=== PATIENT | female | born 1945 | race Caucasian/White ===

== ENCOUNTER → 2018-02-12 | Outpatient (CLI) | payer MEDICARE ==
[~2018-02-12] MED LIST: ACY200 PO; ASPI-715 PO; AZIT-9 PO; CIPR-214 PO; GEMF600T91 PO; LISI20TA29 PO; LOR5/325 PO; METF-410 PO; NONE NOW; OMEG-41 PO; OMEP-125 PO; OMEP-218 PO; ONDA4TAB PO; PER PO; POTA99TA6 PO
--- NOTE | 2018-02-12 12:25 | RADIOLOGY IMAGING REPORT ---
[facility] PATIENT NAME: Kim Ramos : 1945 MR: [id number] V: [id number] EXAM DATE: ORDERING PHYSICIAN: CISCO CLAYTON TECHNOLOGIST: Location: [facility] Patient: Kim Ramos : 1945 Visit/Account:[id number] Date of Sevice: 02/12/2018 Exam type: CHEST PA AND LAT History: Yearly checkup, history of left nephrectomy Comparison: 10/25/2017. Findings: Lungs are hyperinflated with chronic interstitial changes. No focal infiltrate, pleural effusion or p neumothorax. No pulmonary nodules seen. Biapical pleural scarring is once again noted. Heart size is normal. Thoracic aorta is ectatic. The osseous structures demonstrate degenerative changes. IMPRESSION: 1. No acute cardiopulmonary disease. 2. Pulmonary hyperinflation with chronic initial changes. 3. No definitive metastatic disease to the chest. Report Dictated By: Arvind Serrato MD at 02/12/2018 12:18 PM Report E-Signed By: Arvind Serrato MD at 02/12/2018 12:21 PM WSN:[id number]
--- NOTE | 2018-02-12 14:11 | RADIOLOGY IMAGING REPORT ---
FACILITY: [facility] PATIENT NAME: Kim Ramos : 1945 MR: [id number] V: [id number] EXAM DATE: ORDERING PHYSICIAN: CISCO CLAYTON TECHNOLOGIST: Location: [facility] [place] Patient: Kim Ramos : 1945 Visit/Account:[id number] Date of Sevice: 02/12/2018 CT abdomen and pelvis without contrast Indication: Renal cell carcinoma Comparison: CT examination from November 28, 2016 Technique: Axial CT images are obtained through the a bdomen and pelvis. Reformatted coronal and sagittal images were reviewed. IV contrast was not adminis tered. One of the following dose optimization techniques was utilized in the performance of this exam : Automated exposure control; adjustment of the mA and/or kV according to the patient's size; or use of an iterative reconstruction technique. Specific details can be referenced in the facility's [facility] CT exam operational policy. Findings: Lower lung pineda: No evidence of new or enlarging nodule within the lung bases. Evaluation of the solid organs of the abdomen is limited without IV contrast. Liver: Stable low-density cyst within hepatic segment seven. Biliary: Gallbladder is been surgically removed. Common bile duct within the ashly hepatis remains e nlarged, measuring approximately 1.8 cm. No change as compared to prior CT examination from November 2016 Pancreas: No acute finding Spleen: Normal appearance. Adrenal glands: Stable, low-density circular nodule superiorly involving the medial limb of the left adrenal gland. This measures 1.3 cm. This has internal Hounsfield units of 17. Finding is not sign ificantly changed as compared to the CT examination from January 2014 when the nodule measures 1.2cm. Kidneys / retroperitoneum: Stable postoperative changes from left nephrectomy. No evidence of local recurrence. 7 mm stone lower pole on the left is stable. Punctate 1 mm stones are noted on the right. No eviden ce of new hydronephrosis. The subtle exophytic lesion which was noted on prior CT with contrast is once again reidentified by i ts contour abnormality laterally lower pole left kidney. The size of this cannot be measured due to lack of contrast but is not appear significantly changed. Bowel / peritoneum / mesenteries: Granado-diverticular changes are once again reidentified without eviden ce of acute diverticulitis. There is no evidence of acute bowel pathology. Lymph node assessment: No adenopathy by size criteria Vessels: Moderate atherosclerotic disease is noted. There is a there is a fusiform infrarenal abdomi nal aortic aneurysm which measures 4.1 cm Musculoskeletal / Body wall: No evidence of acute destructive osseous process. No new focal lytic or blastic lesion. IMPRESSION: 1. Stable postoperative changes from left nephrectomy. The previously noted 9 mm exophytic lesion a ssociated with the lateral lower pole the left kidney is not fully characterize due to lack of IV con trast. The contour abnormality and the overall size appear unchanged as compared to prior study. 2. Bilateral nephrolithiasis 3. 4.1 cm fusiform infrarenal abdominal aortic aneurysm which demonstrates subtle interval growth co mpared to prior studies. Report Dictated By: Kermit Veliz MD at 02/12/2018 1:50 PM Report E-Signed By: Kermit Veliz MD at 02/12/2018 2:07 PM WSN:[email or web address]
== END ==
LOC: CT 01:44
PROVIDERS: ATTEND Urology
DX: N20.0 Calculus of kidney (principal); I71.4 Abdominal aortic aneurysm, without rupture; Z90.5 Acquired absence of kidney
CPT/HCPCS: 71046; 74176